=== PATIENT | female | born 1985 ===

== ENCOUNTER 2021-04-22 08:00 | Outpatient (CLI) | payer MEDICAID | END 2021-04-22 23:59 | disposition home or self-care (01) | LOC: LAB 08:00 | DX: Z34.03 Encounter for supervision of normal first pregnancy, third trimester (principal) | CPT/HCPCS: 81599; 82950 ==

== ENCOUNTER 2021-06-16 10:30 | Outpatient (CLI) | payer MEDICAID | END 2021-06-16 23:59 | disposition home or self-care (01) | LOC: MERGE 10:30 → LAB.R 10:30 | PROVIDERS: ATTEND Midwife | DX: Z34.03 Encounter for supervision of normal first pregnancy, third trimester (principal) | CPT/HCPCS: 87797 ==